=== PATIENT | male | born 1950 | race Caucasian/White ===

== ENCOUNTER → 2020-01-11 | Outpatient (CLI) | payer MEDICARE ==
--- NOTE | 2020-01-11 17:15 | MR ---
EXAMINATION TYPE: MR brain wo/w [facility] DATE OF EXAM: 01/11/2020 COMPARISON: None HISTORY: weakness bilateral arm pain TECHNIQUE: Multiplanar, multisequence images of the brain and brainstem is performed without and with IV contras t, utilizing 8.5 mL intravenous Gadavist . The planar multisequence imaging through the cervical spin e. FINDINGS: Brain MRI: Diffusion weighted images demonstrate no evidence of a recent infarct or other diffusion a bnormality. There is no extra-axial fluid collection. Scattered hyperintensities within the deep whi te matter on inversion recovery T2-weighted sequences are noted, approximately 5-10 lesions are prese nt. The ventricular system and cisternal spaces are normal in size and appearance. The brain volume is age appropriate. Cortical atrophy is noted. Midline structures demonstrate normal morphology. The craniocervical junction appears within normal limits. Post contrast images demonstrate no abnormal enhancement. The dural venous sinuses appear pa tent. The visualized sinuses are remarkable for inflammatory change in the frontal sinus, ethmoid air cells and the globes are intact. IMPRESSION: Nonspecific white matter demyelination. Mild sinus disease. Cervical spine MRI: There is anterolisthesis grade 1 C3-4, C4-5 retrolisthesis grade 1 C5-6. Loss of disc height signal is present intervertebral levels. There is multilevel spondylosis with endplate di scogenic marrow signal change present. Suspect some increased cord signal at C3-4 level and T2-weight ed sequences, sagittal image #6 and axial image #35. C2-3: No evident spinal stenosis. No foraminal encroachment. No disc herniation C3-4: Posterior extension endplate disc complex results in moderate to severe central canal stenosis. There is mass effect on the cervical cord. Bilateral foraminal encroachment present due to uncoverte bral joint hypertrophy facet arthropathy. C4-5: Posterior extension endplate disc complex causes moderate central stenosis. There is bilateral foraminal encroachment. C5-6: Posterior broad-based disc bulge causes anterior mass effect on the thecal sac. Mild spinal marina nosis. There is bilateral foraminal encroachment. C6-7: Posterior extension endplate disc complex causes mild anterior mass effect on the thecal sac. T here is some left-sided foraminal encroachment. C7-T1: Unremarkable. IMPRESSION: Degenerative disc disease, multilevel foraminal encroachment, spinal stenosis with possib le gliosis involving the cervical cord as described
== END | disposition home or self-care (01) ==
LOC: RADMRIMAIN 13:09
PROVIDERS: ATTEND Family Medicine
DX: M48.02 Spinal stenosis, cervical region (principal); M50.30 Other cervical disc degeneration, unspecified cervical region; R53.1 Weakness
CPT/HCPCS: 70553; 72141

== ENCOUNTER → 2020-02-14 | Outpatient (CLI) | payer MEDICARE ==
--- NOTE | 2020-02-14 13:42 | MR ---
EXAMINATION TYPE: MR lumbar spine wo/w con DATE OF EXAM: 02/14/2020 COMPARISON: NONE HISTORY: Malcolm lower extremity pain, weakness, and numbness TECHNIQUE: Multiplanar, multisequence images of the lumbar spine is performed without and with IV contrast, util izing 7.5 mL intravenous Gadavist FINDINGS: Sagittal images of the lumbar spine show vertebral body heights to appear satisfactory. Ali gnment is straightened. Multilevel disc desiccation with multilevel moderate to advanced disc space n arrowing and vacuum disc phenomenon. Moderate 2 severe multilevel anterior spurring. The conus medull steff is normal in position and signal ending inferior L1 level. Heterogeneous Modic type III endplate changes L3-L4 level. Hemangioma noted involving the T11 vertebra. Axial images at T12-L1 level show mild broad disc bulge minimally effacing anterior thecal sac. Axial images at L1-L2 level show [id number] broad disc bulge effacing anterior thecal sac and c ausing mild bilateral anterior inferior neural foraminal narrowing. Axial images at L2-L3 level show moderate to advanced broad disc bulge effacing the anterior thecal s ac and causing moderate right and mild left-sided neural foraminal narrowing. Axial images at L3-L4 level show advanced broad disc bulge and mild facet degenerative changes bilate rally with effacement of the anterior thecal sac. There is severe bilateral neural foraminal narrowin g encroaching on the right L3 nerve sagittal image 11 and to lesser degree left L3 nerve sagittal melquiades ge 4. Axial images at the L4-L5 level show moderate to advanced broad disc bulge with central disc protrusi on causing moderate to advanced right-sided neural foraminal narrowing encroaching along the anterior margin of the exiting right L4 nerve sagittal image 13. [id number] facet degenerative changes bilaterally. Axial images at the L5-S1 level show moderate broad disc bulge and mild/moderate left greater than ri ght facet degenerative changes bilaterally. There is moderate bilateral neural foraminal narrowing. E ncroachment on left L5 nerve due to uncovertebral facet spur seen on sagittal image 4. Encroachment r ight L5 nerve seen sagittal image 13 due to spur disc complex. No suspicious postcontrast enhancement is seen. No suspicious incidental retroperitoneal findings. IMPRESSION: Straightening of the lumbar spine with multilevel fairly moderate to advanced degenerativ e changes as detailed above. Greatest findings noted L3-L4 through the L5-S1 levels..
== END | disposition home or self-care (01) ==
LOC: RADMRIMAIN 12:10
PROVIDERS: ATTEND Family Medicine
DX: M47.816 Spondylosis without myelopathy or radiculopathy, lumbar region (principal)
CPT/HCPCS: 72158; A9585

== ENCOUNTER → 2020-07-20 | Outpatient (CLI) | payer MEDICARE ==
--- NOTE | 2020-07-20 13:59 | XR ---
EXAMINATION TYPE: XR cervical spine limited DATE OF EXAM: 07/20/2020 COMPARISON: NONE HISTORY: Postop TECHNIQUE: 3 views submitted FINDINGS: Soft tissue ossification is seen posteriorly. There is surgical brian anteriorly in the r ight. There is postsurgical change which appears in near-anatomic alignment. Degenerative disc diseas e C2-3 and at the lower thoracic spine noted with spurring. Slight anterior listhesis of the lowest p ostsurgical cervical segment, suspected to be C6, upon C7. Odontoid grossly intact. Mild prominence o f the prevertebral soft tissue structures. IMPRESSION: 1. Postsurgical change with minimal anterolisthesis as discussed above. There is mild prevertebral so ft tissue prominence anterior to the surgical site which should be correlated clinically.
== END | disposition home or self-care (01) ==
LOC: RADXRMAIN 13:31
PROVIDERS: ATTEND Neurological Surgery
DX: Z09 Encounter for follow-up examination after completed treatment for conditions other than malignant neoplasm (principal); M43.16 Spondylolisthesis, lumbar region; M51.36 Other intervertebral disc degeneration, lumbar region; Z98.1 Arthrodesis status
CPT/HCPCS: 72040

== ENCOUNTER → 2020-09-14 | Outpatient (CLI) | payer MEDICARE ==
--- NOTE | 2020-09-14 14:56 | XR ---
EXAMINATION TYPE: XR cervical spine limited DATE OF EXAM: 09/14/2020 COMPARISON: 07/20/2020 HISTORY: Postsurgical changes TECHNIQUE: 4 view cervical spine FINDINGS: Anterior cervical fusion is present C3-C6. Disc spaces are present. Posterior pedicle screw s and fixation rods are also present from laminectomy. Alignment appears preserved. There is diffuse disc space narrowing within the residual disc spaces. N o significant interval change from comparison is evident IMPRESSION: 1. Postsurgical changes with anterior fusion and posterior fixation rods
== END | disposition home or self-care (01) ==
LOC: RADXRMAIN 14:21
PROVIDERS: ATTEND Neurological Surgery
DX: Z01.818 Encounter for other preprocedural examination (principal); Z98.1 Arthrodesis status
CPT/HCPCS: 72040

== ENCOUNTER → 2020-12-24 | Outpatient (CLI) | payer MEDICARE ==
--- NOTE | 2020-12-24 16:16 | XR ---
EXAMINATION TYPE: XR cervical spine 3 views, XR thoracic spine 2V DATE OF EXAM: 12/24/2020 Comparison: 09/14/2020 Clinical History: 70-year-old male Z98.1 Findings: Cervical spine: Extensive posterior fusion from C2 through T2 levels and ACDF from C3 through C6 levels. Alignment is maintained. Anterior plate spondylosis C6-C7. Degenerative change at the C1 dens articulation. No pr evertebral soft tissue swelling. Normal odontoid view. Some new heterotopic ossification have developed in the left anterior neck.. Thoracic spine: Dextroconvex curvature of the thoracic spine. 12 rib bearing thoracic vertebral bodies. [facility] througho ut the mid and lower thoracic spine. Vertebral body heights are preserved and alignment is maintained . IMPRESSION: 1. Cervical spine: Extensive posterior cervical fusion from C2 through T2 levels and ACDF from C3 thr ough C6 levels. No prevertebral soft tissue swelling or malalignment seen. 2. Thoracic spine: Dextroconvex scoliosis. 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 No verte bral compression collapse or malalignment seen.
== END | disposition home or self-care (01) ==
LOC: RADXRMAIN 15:12
PROVIDERS: ATTEND Neurological Surgery
DX: Z98.1 Arthrodesis status (principal)
CPT/HCPCS: 72040; 72070

== ENCOUNTER → 2023-12-30 | Outpatient (CLI) | payer MEDICARE ==
[2023-12-30 16:30] LABS: C Reactive Protein <0.30 mg/dL (0.00-0.80); Creatine Kinase 261 U/L (35-257)
== END | disposition home or self-care (01) ==
LOC: LABWHC1 12:44
PROVIDERS: ATTEND Psychiatry & Neurology Neurology
DX: G62.9 Polyneuropathy, unspecified (principal); M62.81 Muscle weakness (generalized); Z79.899 Other long term (current) drug therapy
CPT/HCPCS: 36415; 82550; 82607; 83036; 85652; 86140

== ENCOUNTER → 2025-01-30 | Outpatient (CLI) | payer MEDICARE ==
[2025-01-30 19:27] LABS: Creatine Kinase 122 U/L (35-257)
[2025-01-30 19:28] LABS: C Reactive Protein <0.30 mg/dL (0.00-0.80)
== END | disposition home or self-care (01) ==
LOC: LABWHC1 11:49
PROVIDERS: ATTEND Psychiatry & Neurology Neurology
DX: G62.9 Polyneuropathy, unspecified (principal); M62.81 Muscle weakness (generalized); Z79.899 Other long term (current) drug therapy
CPT/HCPCS: 36415; 82550; 82607; 83036; 85652; 86140